=== PATIENT | female | born 1945 | race Caucasian/White ===

== ENCOUNTER → 2017-03-05 | Outpatient (CLI) | payer MEDICARE ==
[~2017-03-05] MED LIST: ATEN1TAB75 PO; ATOR20TA15 PO; CHOL4POW3 PO; ESTR1.25 PO; KETO2CRE TOPICAL; LEVO100T5 PO; LEVO100T60 PO; MULT-65 PO; MUPI2OIN TOPICAL; PANT40TA3 PO; PRIN20TA2 PO; PROT40TA PO; SULF1TAB23 PO; WALKER ROLLING
[2017-03-05 11:35] LABS: AUTOMATED NEUTROPHIL # 3.2 TH/MM3 (1.8-7.7); BASOPHIL % 0.5 % (0.0-2.0); EOSINOPHIL # 0.1 TH/MM3 (0-0.4); EOSINOPHIL % 1.7 % (0.0-4.0); HEMATOCRIT 38.9 % (35.0-46.0); HEMO FLAGS DIFF FINAL; LYMPHOCYTE # 2.4 TH/MM3 (1.0-4.8); MEAN CELL VOLUME 93.4 FL (80.0-100.0); MEAN CORPUSCULAR HEMOGLOBIN 30.3 PG (27.0-34.0); MEAN CORPUSCULAR HGB CONC 32.5 % (32.0-36.0); MONO % 7.3 % (0.0-8.0); NEUT % 51.5 % (16.0-70.0); PLATELET COUNT 246 TH/MM3 (150-450); RED BLOOD COUNT 4.17 MIL/MM3 (4.00-5.30); RED CELL DISTRIBUTION WIDTH 13.4 % (11.6-17.2); WHITE BLOOD COUNT 6.2 TH/MM3 (4.0-11.0)
[2017-03-05 11:44] LABS: BACTERIA, URINE MANY /hpf; BLOOD, URINE NEG (NEG); GLUCOSE,URINE NEG (NEG); KETONE, URINE NEG (NEG); NITRITE,URINE NEG (NEG); PH, URINE 6.5 (5.0-8.5); SQUAMOUS EPITHELIAL CELL URINE <1 /hpf (0-5); URINE COLOR LIGHT-YELLOW (YELLW/STRAW)
[2017-03-05 12:01] LABS: POTASSIUM 4.2 MEQ/L (3.5-5.1)
== END ==
LOC: CPRE 10:36
PROVIDERS: ATTEND Obstetrics & Gynecology
DX: N81.89 Other female genital prolapse (principal); Z01.812 Encounter for preprocedural laboratory examination
CPT/HCPCS: 36415; 80048; 81001; 85025; 86850; 86900; 86901

== ENCOUNTER 2017-03-07 05:49 | Observation (INO) | payer MEDICARE ==
[~2017-03-07] VITALS: Ht 162.6 cm; Wt 75.8 kg
[~2017-03-07 05:49] MED LIST changes: -ATEN1TAB75 PO; -LEVO100T60 PO; -PRIN20TA2 PO; -PROT40TA PO; -SULF1TAB23 PO; -WALKER ROLLING
[2017-03-07] MEDS ORDERED: SODIUM CHLORID 0.9% 500 ML IV PRN (06:30)
[2017-03-07] MEDS ORDERED: INSULIN HUMAN REGULAR 1,000 UNITS/10 ML VIAL SQ PRN (06:30)
[2017-03-07] MEDS ORDERED: ceFAZolin 2 GM PREMIX 50 ML IV SCH (06:30)
[2017-03-07] MEDS ORDERED: LACTATED RINGER'S 1000 ML IV PRN (06:30)
[2017-03-07] MEDS ORDERED: CHLORHEXIDINE GLUCONATE 2 % 1 PACK (2 CLOTHS) TOPICAL PRN (06:30)
[2017-03-07] MEDS ORDERED: METOPROLOL TARTRATE 25 MG TAB PO PRN (06:30)
[2017-03-07] MEDS ORDERED: POVIDONE IODINE 5% (ANTISEPSIS KIT) 4 APPLICATIONS EACH NARE PRN (06:30)
[2017-03-07 06:48] VITALS: BP 118/61; PULSE 62; RESP 16; TEMP 97.8; O2SAT 98
[2017-03-07] MEDS ORDERED: SULF1TAB23 PO (06:48)
[2017-03-07] MEDS ORDERED: ESTROGENS CONJUGATED VAG CREA 15 APPL/30 GM TUBE ONE (06:53)
[2017-03-07] MEDS ORDERED: GENTAMICIN SULFATE 80 MG/2 ML VIAL ONE (06:53)
[2017-03-07] MEDS ORDERED: BUPIVACAINE HCL PF 0.25% 30 ML VIAL ONE (06:53)
[2017-03-07] MEDS ORDERED: ACETAMINOPHEN 1000 MG/100 ML VIAL IV ONE (07:26)
[2017-03-07] MEDS ORDERED: fentaNYL CITRATE 250 MCG/5 ML AMP ONE (07:27)
[2017-03-07] MEDS ORDERED: MIDAZOLAM HCL 2 MG/2 ML VIAL ONE (07:27)
[2017-03-07] MEDS ORDERED: FAMOTIDINE 20 MG/2 ML VIAL ONE (07:30)
[2017-03-07] MEDS ORDERED: BUPIVACAINE HCL PF 0.25% 30 ML VIAL INFIL ONE (08:17)
[2017-03-07] MEDS ORDERED: METHYLENE BLUE 10 MG/ML VIAL OTHER ONE (08:17)
[2017-03-07] MEDS: LACTATED RINGER'S 1000 ML INJ 1,000 ML IV SCH ×2 (09:55→17:55)
[2017-03-07] MEDS ORDERED: ZOLPIDEM TARTRATE 5 MG TAB PO PRN (10:00)
[2017-03-07] MEDS: SODIUM CHLORIDE 0.9% FLUSH 10 ML FLUSH IV FLUSH SCH ×2 (10:00→20:20)
[2017-03-07] MEDS ORDERED: oxyCODONE/ACETAMINOPHEN 5 MG/325 MG TAB PO PRN (10:00)
[2017-03-07] MEDS ORDERED: IBUPROFEN 600 MG TAB PO PRN (10:00)
[2017-03-07] MEDS: DOCUSATE SODIUM 100 MG CAP PO SCH ×2 (10:00→20:20)
[2017-03-07] MEDS ORDERED: SODIUM CHLORIDE 0.9% FLUSH 10 ML FLUSH IV FLUSH PRN (10:00)
[2017-03-07] MEDS ORDERED: ONDANSETRON HCL 4 MG/2 ML VIAL IVP PRN (10:00)
[2017-03-07] MEDS ORDERED: *morphine SULFATE 8 MG/ML PERIprocedure ONLY ONE ×3 (10:24→11:28)
--- NOTE | 2017-03-07 10:40 | MP ---
cc: BETHANY SPICER MD CORTEZ,YSABEL Iverson M.D. DATE OF SURGERY: 03/07/2017 PREOPERATIVE DIAGNOSIS Patient with vaginal vault prolapse, previous hysterectomy, symptomatic cystocele, rectocele. PROCEDURE Exam under anesthesia, anterior colporrhaphy, posterior colporrhaphy, sacrospinous ligament fixation, cystourethroscopy. POSTOPERATIVE DIAGNOSIS Patient with vaginal vault prolapse, previous hysterectomy, symptomatic cystocele, rectocele. SURGEON Dr. Brown. ANESTHESIA General with endotracheal intubation. ESTIMATED BLOOD LOSS 50 ccs. DRAINS Magallon to gravity. OPERATIVE FINDINGS The patient had a stage III cystocele, stage III rectocele. She had a vault prolapse with an enterocele, no other abnormalities present. The urethra and bladder were intact. No interruption of the ureters. INDICATION FOR PROCEDURE Patient with recent bariatric surgery resulting in significant weight loss. The patient subsequently developed significant vaginal vault prolapse. She has a history of a hysterectomy. She developed symptomatic protrusion and pressure. Options were discussed. The patient failed a trial of the pessary and elected for surgical repair. PROCEDURE The patient was taken to the operating room, previously received Ancef 2 grams prophylactically. She underwent general anesthesia with endotracheal intubation, carefully positioned in the dorsolithotomy position using candy-cane stirrups. She had sequential placed on lower extremities for VTE prophylaxis. Time-out was conducted and agreed by all present in the room. She was then as previously prepped and draped. Magallon catheter was inserted by sterile technique. Exam revealed the findings noted preoperatively. The cystocele was defined first placing a weighted speculum posteriorly and then using Allis clamps to identify the midline. The tissue was injected with 0.25% plain Marcaine and then dissection initiated by making a linear incision in the middle of the defect and then extending it to the full length of the vaginal vault to incorporate the defect. This is approximately about 6 cm. The dissection was conducted by combination of sharp and blunt dissection to reduce the cystocele. The cystocele was reduced significantly and then imbricating sutures of 2-0 Vicryl were placed using a UR6 needle and this was used to reduce the defect. Once the defect was reduced the vaginal mucosa was trimmed, removing the excess tissue and then closing the defect with a running locking suture of 3-0 Vicryl. The posterior defect was then defined in the same fashion, injecting with again 0.25% plain Marcaine and then making a linear incision. This was dissected again up to the apex of the vagina. An enterocele was encountered which was closed and then the sacrospinous ligament on the patient's right side was dissected, identified, grabbed with a [place] clamp. The Capio needle device with a #1 Prolene was used incorporating and securing the sacrospinous ligament with an avascular plane and then the ends of the suture were brought through the mid aspect of the vaginal apex through the vaginal mucosa. The suture was then left untied. The posterior defect was then closed in the same fashion using interrupted imbricating sutures of 2-0 Monocryl, reducing the rectocele. The redundant vaginal mucosa was then trimmed and then the defect was closed with a running suture of 3-0 Vicryl. At this point the vaginal vault was closed and then the sacrospinous suture was then secured and tied elevating the vaginal apex and providing excellent support. The Magallon catheter was then removed and then a 7 degree hysteroscope was used with normal saline to examine the urethra and bladder which were described above intact, no complication, no interruption. Magallon catheter was reinserted draining clear urine and then Premarin cream was applied to the vaginal incision sites. No packing was in place. There was no active bleeding or hematoma. At the end of the case final count was correct. The patient was stable. She was taken to the recovery room on room air. MD DENIA Tena/LIVL /10:09 AM /10:23 AM
[2017-03-07] MEDS: KETOROLAC TROMETHAMINE 30 MG/ML (IVP) VIAL IVP PRN ×2 (10:44→21:47)
[2017-03-07] MEDS ORDERED: DO NOT ADM ANY ANTICOAGULANT DRUGS PRN (10:45)
[2017-03-07 12:00] VITALS: BP 134/62; PULSE 60; RESP 18; TEMP 97; O2SAT 98
[2017-03-07] MEDS ORDERED: ONDANSETRON HCL 4 MG/2 ML VIAL IV PUSH ONE (12:00)
[2017-03-07] MEDS ORDERED: LACTATED RINGER'S 1000 ML INJ 2,000 ML IV ONE (12:00)
[2017-03-07] MEDS ORDERED: PROPOFOL 200 MG/20 ML AMP IV ONE (12:00)
[2017-03-07] MEDS ORDERED: NEOSTIGMINE 3 MG/3 ML SYR IV ONE (12:00)
[2017-03-07 13:57] VITALS: O2SAT 97
[2017-03-07 17:45] VITALS: BP 138/66; PULSE 55; RESP 20; TEMP 96.2; O2SAT 99
[2017-03-07] MEDS: NITROFURANTOIN MONOHYD MACROCR 100 MG CAP PO SCH (18:09)
[2017-03-07] MEDS: oxyCODONE/ACETAMINOPHEN 5 MG/325 MG TAB PO PRN (19:04)
[2017-03-07 21:00] VITALS: BP 131/61; PULSE 54; RESP 16; TEMP 96.6; O2SAT 98
[2017-03-07 22:08] VITALS: O2SAT 98
[2017-03-08 00:20] VITALS: BP 127/60; PULSE 55; RESP 16; TEMP 96.8; O2SAT 98
[2017-03-08] MEDS: oxyCODONE/ACETAMINOPHEN 5 MG/325 MG TAB PO PRN ×4 (00:24→13:11)
[2017-03-08] MEDS: LACTATED RINGER'S 1000 ML INJ 1,000 ML IV SCH (02:30)
[2017-03-08 04:00] VITALS: BP 117/56; PULSE 53; RESP 16; TEMP 96.1; O2SAT 98
[2017-03-08] MEDS ORDERED: LEVOTHYROXINE SODIUM 100 MCG TAB PO SCH (06:00)
[2017-03-08 08:00] VITALS: BP 114/54; PULSE 55; RESP 18; TEMP 97.1; O2SAT 98
[2017-03-08] MEDS: SODIUM CHLORIDE 0.9% FLUSH 10 ML FLUSH IV FLUSH SCH (09:00)
[2017-03-08] MEDS: NITROFURANTOIN MONOHYD MACROCR 100 MG CAP PO SCH (09:08)
[2017-03-08] MEDS: DOCUSATE SODIUM 100 MG CAP PO SCH (09:12)
--- NOTE | 2017-03-08 10:45 | HHI.PR ---
Subjective Remarks POD#1, S/P A+P repair sacrospinous ligament fixation; Doing well, pain is well controlled, eating well.Voiding well, Scant vaginal bleeding. Objective Vital Signs Vital Signs Date Time Temp Pulse Resp B/P Pulse Ox O2 Delivery O2 Flow Rate FiO2 03/08/17 04:00 96.1 53 16 117/56 98 03/08/17 00:20 96.8 55 16 127/60 98 03/07/17 22:08 98 Nasal Cannula 1.00 03/07/17 21:00 96.6 54 16 131/61 98 03/07/17 20:20 Nasal Cannula 2.00 03/07/17 18:09 18 03/07/17 17:45 96.2 55 20 138/66 99 03/07/17 13:57 97 Nasal Cannula 2.00 03/07/17 13:06 98 2.00 03/07/17 12:00 97.0 60 18 134/62 98 03/07/17 11:30 65 20 135/63 97 Nasal Cannula 2 03/07/17 10:45 61 20 141/65 97 Nasal Cannula 2 I/O 03/07/17 03/07/17 03/07/17 03/08/17 03/08/17 03/08/17 07:00 15:00 23:00 07:00 15:00 23:00 Intake Total 1620 ml Output Total 660 ml 950 ml 1200 ml Balance 960 ml -950 ml -1200 ml Intake Oral 20 ml IV Total 200 ml Other 1400 ml Output Urine Total 310 ml 950 ml 1200 ml Estimated Blood Loss 100 ml Other 250 ml # Sanitary Pads 1 Pads 1 Pads Objective Remarks Chest is clear, regular rate and rhythm. Abdomen is soft and non-distended. Incision is clean and dry. Ext no CCE. A/P Assessment and Plan Post Op Day 1 Doing well Home today and return to office next week. Continue po cipro at home for UTI. Brennan Brown MD Mar 08, 2017 10:44
--- NOTE | 2017-03-08 10:46 | HHI.DCPOC ---
Discharge Care Plan Your Health Problems Are: Fever, temperature>100.4 Vaginal bleeding Urinary difficulties Report Symptoms to Your Doctor -Temperature above 100.5 degrees -Redness, of incision or excessive or foul smelling drainage -Unusual pain or calf pain -Increased vaginal bleeding -Painful or difficulty urinating -Feelings of extreme sadness or anxiety after 2 weeks Goals to Promote Your Health * To prevent worsening of your condition and complications * To maintain your health at the optimal level Directions to Meet Your Goals Take your medications as prescribed Follow your dietary instruction Follow activity as directed Ensure plenty of rest for recovery Drink fluids for hydration Keep your appointments as scheduled Take your immunizations and boosters as scheduled If your symptoms worsen call your PCP, if no PCP go to Urgent Care Center or Emergency Room Smoking is Dangerous to Your Health. Avoid second hand smoke Call the 24-hour crisis hotline for domestic abuse at Brennan Brown MD Mar 08, 2017 10:46
[2017-03-08 11:19] LABS: BASOPHIL % 0.4 % (0.0-2.0); EOSINOPHIL % 0.5 % (0.0-4.0); HEMATOCRIT 35.4 % (35.0-46.0); HEMO FLAGS DIFF FINAL; LYMPH % 21.6 % (9.0-44.0); LYMPHOCYTE # 1.8 TH/MM3 (1.0-4.8); MEAN CELL VOLUME 94.4 FL (80.0-100.0); MEAN CORPUSCULAR HEMOGLOBIN 30.2 PG (27.0-34.0); MONO % 6.1 % (0.0-8.0); NEUT % 71.4 % (16.0-70.0); PLATELET COUNT 193 TH/MM3 (150-450); RED BLOOD COUNT 3.75 MIL/MM3 (4.00-5.30); RED CELL DISTRIBUTION WIDTH 13.3 % (11.6-17.2); WHITE BLOOD COUNT 8.4 TH/MM3 (4.0-11.0)
[2017-03-08 11:38] VITALS: O2SAT 98
[2017-03-08 11:51] LABS: BICARBONATE 25.5 MEQ/L (21.0-32.0); POTASSIUM 3.5 MEQ/L (3.5-5.1)
== END 2017-03-08 15:49 | disposition home or self-care (01) ==
LOC: HSDC 05:49 → HSDI 09:59 → HOCA 11:36
PROVIDERS: ADMIT Obstetrics & Gynecology; ATTEND Obstetrics & Gynecology
DX: N99.3 Prolapse of vaginal vault after hysterectomy (principal); N81.10 Cystocele, unspecified; N81.6 Rectocele; K46.9 Unspecified abdominal hernia without obstruction or gangrene; N39.0 Urinary tract infection, site not specified; E78.5 Hyperlipidemia, unspecified; K21.9 Gastro-esophageal reflux disease without esophagitis; E03.9 Hypothyroidism, unspecified; Z68.28 Body mass index [BMI] 28.0-28.9, adult; E66.9 Obesity, unspecified; Z87.891 Personal history of nicotine dependence; Z98.84 Bariatric surgery status
CPT/HCPCS: 57265; 57282; 80048; 85025; 94150; 96361; 96374; 96376; G0378; J0131; J0690; J1885; J2250; J2270; J2405; J2710; J3010; J7120; J1580